=== PATIENT | male | born 1960 | race Caucasian/White ===

== ENCOUNTER 2024-08-05 20:34 | Observation (INO) | payer OTHER ==
[2024-08-05 20:49] VITALS: BMI 21.7
[2024-08-05 21:36] LABS: ABSOLUTE IMMATURE GRANULOCYTES 0.03 x10^3/uL (0.0-0.031); BASOPHILS # 0.05 x10^3/uL (0.01-0.08); EOSINOPHILS # 0.12 x10^3/uL (0.04-0.54); HEMATOCRIT 42.1 % (40.1-51.0); HEMOGLOBIN 13.1 g/dL (13.7-17.5); MCHC 31.1 g/dl (32.3-36.5); MEAN CELL VOLUME 90.1 fl (79.0-92.2); MEAN PLT VOLUME 10.7 fl (9.4-12.4); MONOCYTE # 0.56 x10^3/uL (0.30-0.82); MONOCYTE % 9.3 % (5.3-12.2); PLATELET COUNT 272 x10^3/uL (163-337)
[2024-08-05 21:57] LABS: POTASSIUM 4.3 mmol/L (3.5-5.1)
[2024-08-05 21:59] LABS: ALBUMIN 3.7 g/dl (3.4-5.0); BLOOD UREA NITROGEN 23.9 mg/dL (7-18); MAGNESIUM 2.1 mg/dL (1.8-2.4)
[2024-08-05 22:02] LABS: CREATININE 1.6 mg/dL (0.55-1.3)
[2024-08-05 22:04] LABS: BILIRUBIN,TOTAL 0.5 mg/dL (0.2-1); TOT PROT 6.8 g/dl (6.4-8.2)
[2024-08-05 22:11] LABS: LACTIC ACID 3.8 mmol/L (0.4-2.0)
[2024-08-05] MEDS: SODIUM CHLORIDE 0.9% 500 ML INFUS.BAG IV ONE (22:23)
[2024-08-05 22:25] LABS: ACTIVATED PTT 34.3 SECONDS (25.2-36.5); INR 2.09 (0.83-1.09)
[2024-08-06] MEDS: SODIUM CHLORIDE 0.9% 500 ML INFUS.BAG IV ONE (00:07)
[2024-08-06] MEDS ORDERED: LORazepam 2 MG/ML SDV VIAL IVPUSH PRN (00:47)
[2024-08-06] MEDS ORDERED: levETIRAcetam 500 MG/5 ML INJECTION VIAL IVPB ONE (02:13)
[2024-08-06] MEDS: levETIRAcetam 500 MG/5 ML INJECTION VIAL IVPB ONE (02:35)
[2024-08-06 03:20] LABS: URINE APPEARANCE CLEAR; URINE BILIRUBIN NEGATIVE (NEGATIVE); URINE COLOR YELLOW; URINE GLUCOSE (UA) NEGATIVE (NEGATIVE); URINE KETONE TRACE (NEGATIVE); URINE LEUK ESTERASE NEGATIVE (NEGATIVE); URINE NITRITE NEGATIVE (NEGATIVE); URINE PROTEIN TRACE (NEGATIVE)
[2024-08-06 07:45] LABS: INR 2.31 (0.83-1.09); PROTHROMBIN TIME (PATIENT) 25.4 SEC (9.7-13.0)
[2024-08-06 14:09] LABS: INR 2.35 (0.83-1.09); PROTHROMBIN TIME (PATIENT) 25.6 SEC (9.7-13.0)
[2024-08-06] MEDS: levETIRAcetam 500 MG/5 ML INJECTION VIAL IVPB SCH (14:41)
[2024-08-06] MEDS: SODIUM CHLORIDE 1,000 ML IV SCH (14:41)
[2024-08-06] MEDS: WARFARIN NA 3 MG TABLET PO SCH (17:57)
[2024-08-07 02:23] VITALS: RESP 18
[2024-08-07 07:32] LABS: HEMATOCRIT 35.4 % (40.1-51.0); HEMOGLOBIN 10.8 g/dL (13.7-17.5); MCHC 30.5 g/dl (32.3-36.5); MEAN CELL VOLUME 89.8 fl (79.0-92.2); PLATELET COUNT 196 x10^3/uL (163-337); RDW 13.9 % (12.2-16.4)
[2024-08-07 07:57] LABS: POTASSIUM 4.4 mmol/L (3.5-5.1)
[2024-08-07 08:09] LABS: ALBUMIN 2.9 g/dl (3.4-5.0); BLOOD UREA NITROGEN 16.4 mg/dL (7-18); MAGNESIUM 1.8 mg/dL (1.8-2.4)
[2024-08-07 08:12] LABS: CREATININE 0.8 mg/dL (0.55-1.3); PHOSPHOROUS 3.1 mg/dL (2.5-4.9)
[2024-08-07 08:13] LABS: BILIRUBIN,TOTAL 0.4 mg/dL (0.2-1); TOT PROT 5.6 g/dl (6.4-8.2)
[2024-08-07 14:54] VITALS: BP 136/84; PULSE 69; TEMP 97.9
== END 2024-08-07 18:03 | disposition home or self-care (01) ==
LOC: JER 20:34 → JERBED 08-06 00:59 → J4W 08-06 03:25
PROVIDERS: ADMIT Internal Medicine; ATTEND Internal Medicine
DX: R56.9 Unspecified convulsions (principal); R55 Syncope and collapse; I69.811 Memory deficit following other cerebrovascular disease; I48.91 Unspecified atrial fibrillation; Z79.01 Long term (current) use of anticoagulants; Z90.49 Acquired absence of other specified parts of digestive tract
CPT/HCPCS: 36415; 70450-TC; 70551-TC; 71045-TC-FY; 72125-TC; 80053; 81003; 82962; 83605; 83735; 83880; 84100; 84146; 84484; 85025; 85027; 85610; 85730; 86850; 86900; 86901; 87086; 93005; 93010; 93306-TC; 95816; 96361; 96374; 96376; 99285-25; G0378